=== PATIENT | male | born 1950 | race Caucasian/White ===

== ENCOUNTER 2021-01-03 10:00 | Outpatient (CLI) | payer OTHER ==
[2021-01-03] MEDS ORDERED: Z GUARD REMEDY 2 OZ OINT TP ONE (11:50)
== END 2021-01-03 23:59 | disposition home health service (06) ==
LOC: WOU 10:00
PROVIDERS: ATTEND Surgery
DX: L89.324 Pressure ulcer of left buttock, stage 4 (principal); L89.222 Pressure ulcer of left hip, stage 2; G82.20 Paraplegia, unspecified; I10 Essential (primary) hypertension; E11.9 Type 2 diabetes mellitus without complications; Z79.84 Long term (current) use of oral hypoglycemic drugs; Z87.891 Personal history of nicotine dependence
CPT/HCPCS: 11044; 11047

== ENCOUNTER 2021-01-17 11:00 | Outpatient (CLI) | payer OTHER ==
[2021-01-17] MEDS ORDERED: DAKINS HALF STRENGTH (0.25%) 480 ML BOTTLE ONE (12:18)
[2021-01-17] MEDS ORDERED: Z GUARD REMEDY 2 OZ OINT TP ONE (12:19)
== END 2021-01-17 23:59 | disposition home health service (06) ==
LOC: WOU 11:00
PROVIDERS: ATTEND Surgery
DX: L89.324 Pressure ulcer of left buttock, stage 4 (principal); L89.222 Pressure ulcer of left hip, stage 2; G82.20 Paraplegia, unspecified; E11.9 Type 2 diabetes mellitus without complications; Z79.84 Long term (current) use of oral hypoglycemic drugs; I10 Essential (primary) hypertension
CPT/HCPCS: 11044; 11047

== ENCOUNTER 2021-02-07 11:30 | Outpatient (CLI) | payer OTHER | END 2021-02-07 23:59 | disposition home health service (06) | LOC: WOU 11:30 | PROVIDERS: ATTEND Surgery | DX: L89.324 Pressure ulcer of left buttock, stage 4 (principal); G82.20 Paraplegia, unspecified; I10 Essential (primary) hypertension | CPT/HCPCS: 11043 ==

== ENCOUNTER 2021-02-21 11:20 | Outpatient (CLI) | payer OTHER ==
[2021-02-21] MEDS ORDERED: DAKINS HALF STRENGTH (0.25%) 480 ML BOTTLE ONE (12:07)
[2021-02-21] MEDS ORDERED: Z GUARD REMEDY 2 OZ OINT TP ONE (12:07)
== END 2021-02-21 23:59 | disposition home health service (06) ==
LOC: WOU 11:20
PROVIDERS: ATTEND Surgery
DX: L89.324 Pressure ulcer of left buttock, stage 4 (principal); L89.221 Pressure ulcer of left hip, stage 1; G82.20 Paraplegia, unspecified; I10 Essential (primary) hypertension; Z87.891 Personal history of nicotine dependence; E11.9 Type 2 diabetes mellitus without complications; Z79.84 Long term (current) use of oral hypoglycemic drugs
CPT/HCPCS: 11044; 11047

== ENCOUNTER 2021-03-07 11:30 | Outpatient (CLI) | payer OTHER ==
[2021-03-07] MEDS ORDERED: DAKINS HALF STRENGTH (0.25%) 480 ML BOTTLE ONE (12:26)
[2021-03-07] MEDS ORDERED: Z GUARD REMEDY 2 OZ OINT TP ONE (12:26)
== END 2021-03-07 23:59 | disposition home health service (06) ==
LOC: WOU 11:30
PROVIDERS: ATTEND Surgery
DX: L89.324 Pressure ulcer of left buttock, stage 4 (principal); L89.221 Pressure ulcer of left hip, stage 1; G82.20 Paraplegia, unspecified; I10 Essential (primary) hypertension; E11.9 Type 2 diabetes mellitus without complications; Z79.84 Long term (current) use of oral hypoglycemic drugs
CPT/HCPCS: 11044; 11047

== ENCOUNTER 2021-04-16 09:00 | Outpatient (CLI) | payer OTHER | END 2021-04-16 23:59 | disposition home health service (06) | LOC: WOU 09:00 | PROVIDERS: ATTEND Surgery | DX: L89.324 Pressure ulcer of left buttock, stage 4 (principal); T81.31XA Disruption of external operation (surgical) wound, not elsewhere classified, initial encounter; L89.890 Pressure ulcer of other site, unstageable; L89.893 Pressure ulcer of other site, stage 3; S90.32XA Contusion of left foot, initial encounter; X58.XXXA Exposure to other specified factors, initial encounter; Y92.89 Other specified places as the place of occurrence of the external cause; Z87.891 Personal history of nicotine dependence; G82.20 Paraplegia, unspecified; T14.90XS Injury, unspecified, sequela; V97.89 Other air transport accidents, not elsewhere classified; Z88.1 Allergy status to other antibiotic agents; I10 Essential (primary) hypertension; E11.9 Type 2 diabetes mellitus without complications; Z79.899 Other long term (current) drug therapy; Z79.84 Long term (current) use of oral hypoglycemic drugs | CPT/HCPCS: G0463 ==

== ENCOUNTER 2021-04-30 08:40 | Outpatient (CLI) | payer OTHER | END 2021-04-30 23:59 | disposition home health service (06) | LOC: WOU 08:40 | PROVIDERS: ATTEND Surgery | DX: L89.894 Pressure ulcer of other site, stage 4 (principal); L89.624 Pressure ulcer of left heel, stage 4; L89.614 Pressure ulcer of right heel, stage 4; L89.890 Pressure ulcer of other site, unstageable; E11.9 Type 2 diabetes mellitus without complications; Z79.84 Long term (current) use of oral hypoglycemic drugs; I10 Essential (primary) hypertension; G82.20 Paraplegia, unspecified | CPT/HCPCS: 11043 ==

== ENCOUNTER 2021-05-14 08:30 | Outpatient (CLI) | payer OTHER | END 2021-05-14 23:59 | disposition home health service (06) | LOC: WOU 08:30 | PROVIDERS: ATTEND Surgery | DX: L89.624 Pressure ulcer of left heel, stage 4 (principal); L89.614 Pressure ulcer of right heel, stage 4; L89.893 Pressure ulcer of other site, stage 3; E11.9 Type 2 diabetes mellitus without complications; Z79.84 Long term (current) use of oral hypoglycemic drugs; I10 Essential (primary) hypertension; G82.20 Paraplegia, unspecified; Z87.891 Personal history of nicotine dependence | CPT/HCPCS: 11043 ==

== ENCOUNTER 2021-06-11 08:35 | Outpatient (CLI) | payer OTHER | END 2021-06-11 23:59 | disposition home health service (06) | LOC: WOU 08:35 | PROVIDERS: ATTEND Surgery | DX: L89.623 Pressure ulcer of left heel, stage 3 (principal); L89.614 Pressure ulcer of right heel, stage 4; L89.894 Pressure ulcer of other site, stage 4; L89.896 Pressure-induced deep tissue damage of other site; E11.9 Type 2 diabetes mellitus without complications; Z79.84 Long term (current) use of oral hypoglycemic drugs; G82.20 Paraplegia, unspecified; I10 Essential (primary) hypertension | CPT/HCPCS: 11042; 11043 ==

== ENCOUNTER 2021-07-02 08:30 | Outpatient (CLI) | payer OTHER | END 2021-07-02 23:59 | disposition home health service (06) | LOC: WOU 08:30 | PROVIDERS: ATTEND Surgery | DX: L89.624 Pressure ulcer of left heel, stage 4 (principal); L89.614 Pressure ulcer of right heel, stage 4; L89.894 Pressure ulcer of other site, stage 4; L89.896 Pressure-induced deep tissue damage of other site; G82.20 Paraplegia, unspecified; E11.9 Type 2 diabetes mellitus without complications; Z79.84 Long term (current) use of oral hypoglycemic drugs; I10 Essential (primary) hypertension | CPT/HCPCS: 11043; 11044 ==

== ENCOUNTER 2021-07-23 08:30 | Outpatient (CLI) | payer OTHER | END 2021-07-23 23:59 | disposition home health service (06) | LOC: WOU 08:30 | PROVIDERS: ATTEND Surgery | DX: L89.624 Pressure ulcer of left heel, stage 4 (principal); L89.614 Pressure ulcer of right heel, stage 4; L89.894 Pressure ulcer of other site, stage 4; L89.890 Pressure ulcer of other site, unstageable; G82.20 Paraplegia, unspecified; E11.9 Type 2 diabetes mellitus without complications; Z79.84 Long term (current) use of oral hypoglycemic drugs; I10 Essential (primary) hypertension; Z87.891 Personal history of nicotine dependence | CPT/HCPCS: 11043; 11044; 11047; 73620-TC ==

== ENCOUNTER 2021-08-06 08:30 | Outpatient (CLI) | payer OTHER | END 2021-08-06 23:59 | disposition home health service (06) | LOC: WOU 08:30 | PROVIDERS: ATTEND Surgery | DX: L89.624 Pressure ulcer of left heel, stage 4 (principal); L89.614 Pressure ulcer of right heel, stage 4; G82.20 Paraplegia, unspecified; L89.894 Pressure ulcer of other site, stage 4; E11.9 Type 2 diabetes mellitus without complications; I10 Essential (primary) hypertension; Z79.84 Long term (current) use of oral hypoglycemic drugs | CPT/HCPCS: 11044; 11047 ==

== ENCOUNTER 2021-08-20 08:15 | Outpatient (CLI) | payer OTHER | END 2021-08-20 23:59 | disposition home health service (06) | LOC: WOU 08:15 | PROVIDERS: ATTEND Surgery | DX: L89.624 Pressure ulcer of left heel, stage 4 (principal); L89.614 Pressure ulcer of right heel, stage 4; L89.894 Pressure ulcer of other site, stage 4; G82.20 Paraplegia, unspecified; E11.9 Type 2 diabetes mellitus without complications; Z79.84 Long term (current) use of oral hypoglycemic drugs; I10 Essential (primary) hypertension | CPT/HCPCS: 11044; 11047 ==

== ENCOUNTER 2021-09-03 08:13 | Outpatient (CLI) | payer OTHER ==
[2021-09-03] MEDS ORDERED: UREA 10% -AHA 4% CREAM 57 GM TUBE ONE (08:47)
== END 2021-09-03 23:59 | disposition home health service (06) ==
LOC: WOU 08:13
PROVIDERS: ATTEND Surgery
DX: L89.624 Pressure ulcer of left heel, stage 4 (principal); L89.614 Pressure ulcer of right heel, stage 4; L89.894 Pressure ulcer of other site, stage 4; G82.20 Paraplegia, unspecified; E11.9 Type 2 diabetes mellitus without complications; I10 Essential (primary) hypertension; Z87.891 Personal history of nicotine dependence; Z79.84 Long term (current) use of oral hypoglycemic drugs
CPT/HCPCS: 11044; 11047

== ENCOUNTER 2021-09-17 08:30 | Outpatient (CLI) | payer OTHER | END 2021-09-17 23:59 | disposition home health service (06) | LOC: WOU 08:30 | PROVIDERS: ATTEND Surgery | DX: L89.624 Pressure ulcer of left heel, stage 4 (principal); L89.614 Pressure ulcer of right heel, stage 4; G82.20 Paraplegia, unspecified; L89.894 Pressure ulcer of other site, stage 4; E11.9 Type 2 diabetes mellitus without complications; Z79.84 Long term (current) use of oral hypoglycemic drugs; I10 Essential (primary) hypertension; Z87.891 Personal history of nicotine dependence | CPT/HCPCS: 11044; 11047 ==

== ENCOUNTER 2021-10-01 08:25 | Outpatient (CLI) | payer OTHER | END 2021-10-01 23:59 | disposition home health service (06) | LOC: WOU 08:25 | PROVIDERS: ATTEND Surgery | DX: L89.624 Pressure ulcer of left heel, stage 4 (principal); L89.614 Pressure ulcer of right heel, stage 4; L89.510 Pressure ulcer of right ankle, unstageable; L89.890 Pressure ulcer of other site, unstageable; G82.20 Paraplegia, unspecified; E11.9 Type 2 diabetes mellitus without complications; Z79.84 Long term (current) use of oral hypoglycemic drugs; I10 Essential (primary) hypertension; Z87.891 Personal history of nicotine dependence | CPT/HCPCS: 11044; 11047 ==

== ENCOUNTER 2021-10-15 08:25 | Outpatient (CLI) | payer OTHER | END 2021-10-15 23:59 | disposition home health service (06) | LOC: WOU 08:25 | PROVIDERS: ATTEND Surgery | DX: L89.624 Pressure ulcer of left heel, stage 4 (principal); L89.614 Pressure ulcer of right heel, stage 4; L89.514 Pressure ulcer of right ankle, stage 4; L89.893 Pressure ulcer of other site, stage 3; M65.062 Abscess of tendon sheath, left lower leg; G82.20 Paraplegia, unspecified; Z87.891 Personal history of nicotine dependence; E11.9 Type 2 diabetes mellitus without complications; I10 Essential (primary) hypertension; Z79.84 Long term (current) use of oral hypoglycemic drugs | CPT/HCPCS: 10060; 11042; 11043; 11044; 11047; 87070-TC; 87075-TC ==